=== PATIENT | female | born 2005 | race Two or more races ===

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

== ENCOUNTER 2024-04-12 19:11 | Emergency (ER) | payer OTHER ==
[~2024-04-12] VITALS: Ht 154.9 cm; Wt 59.0 kg
[~2024-04-12 19:11] MED LIST changes: +OXYC5TAB3 PO
[2024-04-12] MEDS: IV NS 0.9% 1,000 ML BAG IV ONE (19:56)
[2024-04-12 19:58] LABS: BASOPHILS % (AUTO) 0.3 % (0.0-2.0); EOSINOPHILS % (AUTO) 0.5 % (0.0-6.0); HEMATOCRIT 43 % (33-45); HEMOGLOBIN 14.4 g/dL (11.5-14.8); LYMPHOCYTES # (AUTO) 1.8 K/uL (0.8-4.8); LYMPHOCYTES % (AUTO) 26.1 % (20.0-44.0); MEAN CORPUSCULAR HEMOGLOBIN 33 PG (26.0-33.0); MEAN CORPUSCULAR HGB CONC 34 g/dl (31.0-36.0); MEAN CORPUSCULAR VOLUME 97 fL (82-100); MONOCYTES # (AUTO) 0.4 K/uL (0.1-1.30); MONOCYTES % (AUTO) 5.4 % (2.0-12.0); NEUTROPHILS # (AUTO) 4.6 K/uL (1.8-8.9); NEUTROPHILS % (AUTO) 67.7 % (43.0-81.0); PLATELET COUNT (AUTO) 425 K/uL (150-450); RED BLOOD CELL COUNT(AUTO) 4.41 MIL/uL (4.0-5.2); RED CELL DISTRIBUTION WIDTH 13.3 % (11.5-15.0); WHITE BLOOD COUNT (AUTO) 6.9 K/uL (4.3-11.0)
[2024-04-12 20:14] LABS: APPEARANCE,URINE CLEAR (CLEAR); BILIRUBIN,URINE NEGATIVE (NEGATIVE); BLOOD, URINE 3+ Ery/uL (NEGATIVE); COLOR,URINE YELLOW (YELLOW); KETONES,URINE NEGATIVE (NEGATIVE); LEUKOCYTE ESTERASE ,URINE NEGATIVE (NEGATIVE); NITRITE, URINE NEGATIVE (NEGATIVE); PROTEIN,URINE NEGATIVE (NEGATIVE); UGLUCOSE NEGATIVE (NEGATIVE); UROBILINOGEN,URINE 0.2 EU/dL (0.2)
[2024-04-12] MEDS ORDERED: LORAZEPAM INJ 2 MG/ML VIAL ONE (20:15)
[2024-04-12] MEDS ORDERED: diphenhydrAMINE HCL 50 MG/ML VIAL ONE (20:15)
[2024-04-12 20:19] LABS: RBC,URINE 51-80 /HPF (0-2)
[2024-04-12 20:20] LABS: ADD URINE CULTURE NO; BACTERIA,URINE None seen /HPF (None Seen); WBC,URINE 0-2 /HPF (0-3)
[2024-04-12 20:23] LABS: CALCIUM, SERUM 8.6 mg/dL (8.5-10.1); CARBON DIOXIDE 25 mmol/L (21-32); CHLORIDE 108 mmol/L (98-107); CREATININE 0.7 mg/dL (0.6-1.3); GLUCOSE 107 mg/dL (74-106); POTASSIUM 3.5 mmol/L (3.5-5.1); SODIUM SERUM 147 mmol/L (136-145); UREA NITROGEN, BLOOD 9 mg/dL (7-18)
[2024-04-12] MEDS: diphenhydrAMINE HCL 50 MG/ML VIAL IM ONE (20:26)
[2024-04-12] MEDS: LORAZEPAM INJ 2 MG/ML VIAL IM ONE (20:26)
[2024-04-12 20:29] LABS: ALANINE AMINOTRANSFERASE 21 U/L (12-78); ALBUMIN 3.3 g/dL (3.4-5.0); ALCOHOL, BLOOD 267 mg/dL (0-10); ALKALINE PHOSPHATASE 96 U/L (46-116); ASPARTATE AMINOTRANSFERASE 22 U/L (15-37); BILIRUBIN,DIRECT 0.1 mg/dL (0.0-0.2); BILIRUBIN,TOTAL 0.3 mg/dL (0.2-1.0); SALICYLATE 1.5 mg/dL (2.8-20.0); TOTAL PROTEIN, SERUM 7.1 g/dL (6.4-8.2)
[2024-04-12 20:30] LABS: ACETAMINOPHEN <10 ug/ml (10-30)
[2024-04-12 20:33] LABS: AMPHETAMINE, URINE NEGATIVE (NEGATIVE); BARBITURATE, URINE NEGATIVE (NEGATIVE); COCCAINE, URINE NEGATIVE (NEGATIVE); OPIATE, URINE NEGATIVE (NEGATIVE); PHENCYCLIDINE SCREEN,URINE NEGATIVE (NEGATIVE)
[2024-04-12 20:39] LABS: BENZODIAZEPINE, URINE POSITIVE (NEGATIVE); CANNABINOID, URINE POSITIVE (NEGATIVE)
[2024-04-13] MEDS ORDERED: LORAZEPAM INJ 2 MG/ML VIAL ONE (00:53)
[2024-04-13] MEDS: LORAZEPAM INJ 2 MG/ML VIAL IV ONE (01:04)
[2024-04-13] MEDS: IV NS 0.9% 1,000 ML BAG IV ONE (01:05)
[2024-04-13] MEDS ORDERED: OLANZAPINE 10 MG VIAL IM ONE (01:33)
[2024-04-13] MEDS: OLANZAPINE 10 MG VIAL IM ONE (01:38)
[2024-04-13] MEDS ORDERED: diphenhydrAMINE HCL 50 MG/ML VIAL ONE (02:55)
[2024-04-13] MEDS: diphenhydrAMINE HCL 50 MG/ML VIAL IV ONE (03:01)
[2024-04-13 06:05] VITALS: TEMP 98
[2024-04-13 09:37] VITALS: BP 118/87; O2SAT 99
== END 2024-04-13 09:10 | disposition home or self-care (01) ==
LOC: ER 19:13
DX: R46.1 Bizarre personal appearance (principal); R10.2 Pelvic and perineal pain; Z79.899 Other long term (current) drug therapy; Z79.891 Long term (current) use of opiate analgesic; Z20.822 Contact with and (suspected) exposure to COVID-19
CPT/HCPCS: 99285; 96372 ×2; 96361 ×2; 93005; 85025; 80048; 80076; 81001; 36415; 84702; 87426; 80143; 80320; 80307; 96374; 96375; 98960; J2060 ×2; J1200 ×2; J7030; J3490; G0480

== ENCOUNTER 2024-06-27 21:00 | Emergency (ER) | payer OTHER ==
[~2024-06-27] VITALS: Ht 149.9 cm; Wt 50.8 kg
[2024-06-27] MEDS ORDERED: LORAZEPAM INJ 2 MG/ML VIAL ONE (21:15)
[2024-06-27] MEDS ORDERED: diphenhydrAMINE HCL 50 MG/ML VIAL ONE (21:16)
[2024-06-27] MEDS ORDERED: HALOPERIDOL LACTATE INJ 5 MG/ML VIAL ONE (21:17)
[2024-06-27] MEDS: diphenhydrAMINE HCL 50 MG/ML VIAL IM ONE (21:19)
[2024-06-27] MEDS: HALOPERIDOL LACTATE INJ 5 MG/ML VIAL IM ONE (21:20)
[2024-06-27] MEDS: LORAZEPAM INJ 2 MG/ML VIAL IM/IV ONE (21:20)
[2024-06-27 21:32] LABS: BASOPHILS % (AUTO) 0.2 % (0.0-2.0); EOSINOPHILS % (AUTO) 0.4 % (0.0-6.0); HEMATOCRIT 43 % (33-45); HEMOGLOBIN 14.4 g/dL (11.5-14.8); LYMPHOCYTES # (AUTO) 3.1 K/uL (0.8-4.8); LYMPHOCYTES % (AUTO) 35.7 % (20.0-44.0); MEAN CORPUSCULAR HEMOGLOBIN 33 PG (26.0-33.0); MEAN CORPUSCULAR HGB CONC 34 g/dl (31.0-36.0); MEAN CORPUSCULAR VOLUME 99 fL (82-100); MONOCYTES # (AUTO) 0.5 K/uL (0.1-1.30); NEUTROPHILS # (AUTO) 5.1 K/uL (1.8-8.9); NEUTROPHILS % (AUTO) 57.7 % (43.0-81.0); PLATELET COUNT (AUTO) 343 K/uL (150-450); RED BLOOD CELL COUNT(AUTO) 4.34 MIL/uL (4.0-5.2); RED CELL DISTRIBUTION WIDTH 12.9 % (11.5-15.0); WHITE BLOOD COUNT (AUTO) 8.8 K/uL (4.3-11.0)
[2024-06-27 21:40] LABS: CALCIUM, SERUM 8.4 mg/dL (8.5-10.1); CARBON DIOXIDE 25 mmol/L (21-32); CHLORIDE 109 mmol/L (98-107); CREATININE 0.6 mg/dL (0.6-1.3); GLUCOSE 98 mg/dL (74-106); POTASSIUM 3.6 mmol/L (3.5-5.1); SODIUM SERUM 148 mmol/L (136-145); UREA NITROGEN, BLOOD 5 mg/dL (7-18)
[2024-06-27 21:47] LABS: ALANINE AMINOTRANSFERASE 16 U/L (12-78); ALBUMIN 4.1 g/dL (3.4-5.0); ALCOHOL, BLOOD 295 mg/dL (0-10); ALKALINE PHOSPHATASE 98 U/L (46-116); ASPARTATE AMINOTRANSFERASE 14 U/L (15-37); BILIRUBIN,TOTAL 0.2 mg/dL (0.2-1.0); SALICYLATE 2.8 mg/dL (2.8-20.0); TOTAL PROTEIN, SERUM 7.4 g/dL (6.4-8.2)
[2024-06-27 21:49] LABS: ACETAMINOPHEN < 2 ug/ml (10-30)
[2024-06-27 21:59] LABS: APPEARANCE,URINE CLEAR (CLEAR); BILIRUBIN,URINE NEGATIVE (NEGATIVE); BLOOD, URINE 2+ Ery/uL (NEGATIVE); COLOR,URINE YELLOW (YELLOW); KETONES,URINE NEGATIVE (NEGATIVE); LEUKOCYTE ESTERASE ,URINE NEGATIVE (NEGATIVE); NITRITE, URINE NEGATIVE (NEGATIVE); PROTEIN,URINE TRACE mg/dl (NEGATIVE); UGLUCOSE NEGATIVE (NEGATIVE)
[2024-06-27 22:00] LABS: PREGNANCY TEST URINE QUAL NEGATIVE (NEGATIVE)
[2024-06-27 22:06] LABS: ADD URINE CULTURE YES; BACTERIA,URINE 2+ /HPF (None Seen); RBC,URINE 21-50 /HPF (0-2); SQUAMOUS EPITHELIAL CELL,UR 21-50 /HPF (None Seen); WBC,URINE 0-2 /HPF (0-3)
[2024-06-27 22:14] LABS: AMPHETAMINE, URINE NEGATIVE (NEGATIVE); BARBITURATE, URINE NEGATIVE (NEGATIVE); BENZODIAZEPINE, URINE NEGATIVE (NEGATIVE); COCCAINE, URINE NEGATIVE (NEGATIVE); OPIATE, URINE NEGATIVE (NEGATIVE); PHENCYCLIDINE SCREEN,URINE NEGATIVE (NEGATIVE)
[2024-06-27 22:16] LABS: CANNABINOID, URINE POSITIVE (NEGATIVE)
[2024-06-27] MEDS: IV NS 0.9% 1,000 ML IV ONE (23:30)
[2024-06-28] MEDS: IV NS 0.9% 1,000 ML IV ONE ×4 (00:06→07:02)
[2024-06-28] MEDS: ONDANSETRON HCL/PF - ER 4 MG/2 ML VIAL IV ONE (03:00)
[2024-06-28] MEDS ORDERED: ONDANSETRON HCL/PF 4 MG/2 ML VIAL ONE (03:00)
[2024-06-28 12:41] VITALS: BP 120/72; TEMP 98.6; O2SAT 99
== END 2024-06-28 12:42 | disposition home or self-care (01) ==
LOC: ER 21:08
DX: F10.129 Alcohol abuse with intoxication, unspecified (principal); F17.200 Nicotine dependence, unspecified, uncomplicated; R41.0 Disorientation, unspecified; Z20.822 Contact with and (suspected) exposure to COVID-19
CPT/HCPCS: 99285; 96372; 96374; 96361 ×2; 70450; 85025; 87086; 84703; 81001; 36415 ×2; 80053; 87426; 80143; 80320 ×3; 80307; 96375; J2060; J1200; J1630; J7030 ×6; J2405 ×2; G0480

== ENCOUNTER 2024-07-15 19:30 | Emergency (ER) | payer OTHER ==
[~2024-07-15] VITALS: Ht 149.9 cm; Wt 50.8 kg
[2024-07-15 19:38] VITALS: BP 122/79; TEMP 98.3; O2SAT 97
== END 2024-07-15 21:17 ==
LOC: ER 19:39
DX: H10.213 Acute toxic conjunctivitis, bilateral (principal); F17.200 Nicotine dependence, unspecified, uncomplicated

== ENCOUNTER 2024-11-07 10:15 | Emergency (ER) | payer OTHER ==
[~2024-11-07] VITALS: Ht 147.3 cm; Wt 39.9 kg
[2024-11-07 10:58] VITALS: BP 147/97; TEMP 98.5; O2SAT 99
== END 2024-11-07 10:59 | disposition home or self-care (01) ==
LOC: ER 10:19
DX: R00.2 Palpitations (principal); F17.200 Nicotine dependence, unspecified, uncomplicated; Z79.899 Other long term (current) drug therapy